=== PATIENT | female | born 1960 | race Caucasian/White ===

== ENCOUNTER 2023-08-22 02:51 | Emergency (ER) | payer OTHER ==
[~2023-08-22] VITALS: Ht 154.9 cm; Wt 89.3 kg
[2023-08-22 03:01] VITALS: BP 198/104; PULSE 91; O2SAT 99
[2023-08-22] MEDS: acetaminophen 325mg tablet PO ONE (04:42)
[2023-08-22] MEDS: ibuprofen tablet 400 MG TABLET PO ONE (04:43)
[2023-08-22] MEDS: TETanus/Pertussis (Acell)/Diphther VAC/PF (Tdap-Adult) 0.5ml syringe IMVAC ONE (04:44)
[2023-08-22 04:50] VITALS: RESP 14
[2023-08-22 05:55] VITALS: TEMP 98.3
== END 2023-08-22 05:59 | disposition home or self-care (01) ==
LOC: ER 02:53
DX: S50.311A Abrasion of right elbow, initial encounter (principal); E11.9 Type 2 diabetes mellitus without complications; M25.551 Pain in right hip; M25.521 Pain in right elbow; Z88.2 Allergy status to sulfonamides; W01.0XXA Fall on same level from slipping, tripping and stumbling without subsequent striking against object, initial encounter; Y93.89 Activity, other specified; Y92.89 Other specified places as the place of occurrence of the external cause; Y99.8 Other external cause status
CPT/HCPCS: 73080; 73502; 90471; 90715; 99284

== ENCOUNTER 2024-04-13 05:26 | Inpatient (IN) | payer OTHER ==
[2024-04-03 15:18] LABS: BASOPHILS % (AUTO) 0.7 % (0-1); BILIRUBIN,URINE NEGATIVE (Neg); CLARITY,URINE CLEAR (Clear); COLOR,URINE YELLOW (Yellow); EOSINOPHILS # (AUTO) 0.2 X10'3 (0-0.9); EOSINOPHILS % (AUTO) 3.6 % (0-6); GLUCOSE, URINE 500 mg/dl (Neg); KETONES,URINE NEGATIVE (Neg); LEUKOCYTE ESTERASE ,URINE NEGATIVE (Neg); LYMPHOCYTES # (AUTO) 2.4 X10'3 (1.1-4.8); LYMPHOCYTES % (AUTO) 40.9 % (21-51); MEAN CORPUSCULAR HEMOGLOBIN 31.9 PG (27.0-31.0); MEAN CORPUSCULAR HGB CONC 35.2 g/dL (33.0-36.5); MEAN CORPUSCULAR VOLUME 90.8 FL (78-98); MEAN PLATELET VOLUME 7.4 FL (7.4-10.4); MONOCYTES # (AUTO) 0.4 X10'3 (0-0.9); MONOCYTES % (AUTO) 6.4 % (2-12); NEUTROPHILS # (AUTO) 2.9 X10'3 (1.8-7.7); NEUTROPHILS % (AUTO) 48.4 % (42-75); NITRITES, URINE NEGATIVE (Neg); OCCULT BLOOD,URINE TRACE-INTACT (Neg); PRE OP HEMATOCRIT 42.3 % (35.0-45.0); PRE OP HEMOGLOBIN 14.9 g/dL (12.0-16.0); PRE OP PLATELET COUNT 231 X10'3 (140-440); PRE OP WHITE BLOOD COUNT 5.9 10'3 (4.8-10.8); PROTEIN,URINE NEGATIVE (Neg); RED BLOOD COUNT 4.66 X10'6 (4.20-5.60); RED CELL DISTRIBUTION WIDTH 12.6 % (11.5-14.5); UROBILINOGEN,URINE 0.2 E.U/dL (0.2-1.0)
[2024-04-03 15:25] LABS: UA COLLECTION TYPE CLN CATCH MIDSTREAM
[2024-04-03 15:26] LABS: SQUAMOUS EPITHELIAL CELL,UR MODERATE /LPF (FEW)
[2024-04-03 15:27] LABS: BACTERIA,URINE 1+ /HPF (Neg); RBC,URINE 0-2 /HPF (0-2); WBC,URINE 0-4 /HPF (0-4)
[2024-04-03 16:09] LABS: ALBUMIN 3.7 G/DL (3.4-5.0); ALBUMIN/GLOBULIN RATIO 1.1 (1.1-1.5); ALKALINE PHOSPHATASE 93 IU/L (46-116); BLOOD UREA NITROGEN 16 MG/DL (7-18); BUN/CREATININE RATIO 17.8 (10.0-20.0); CALCIUM 9.4 MG/DL (8.5-10.1); CHLORIDE 102 MMOL/L (99-107); PRE OP ALT 57 U/L (30-65); PRE OP ANION GAP 11 (8-16); PRE OP AST 36 U/L (10-37); PRE OP BILIRUB, TOTAL 0.5 MG/DL (0.0-1.0); PRE OP SODIUM 140 MMOL/L (135-145); TOTAL CARBON DIOXIDE 27.1 MMOL/L (24-32); TOTAL PROTEIN 7.2 G/DL (6.4-8.2); eGFR 63 ML/MIN
[2024-04-03 16:19] LABS: PRE OP GLUCOSE 300 MG/DL (70-104); PRE OP POTASSIUM 3.8 MMOL/L (3.4-5.1)
[2024-04-04 13:47] LABS: HEMOGLOBIN A1C 8.1 % (4.5-6.2)
[~2024-04-13] VITALS: Ht 154.9 cm; Wt 81.7 kg
[2024-04-13] VITALS (39 sets, daily range): BP systolic 93–130; BP diastolic 46–75; PULSE 66–91; RESP 10–20; TEMP 97.2–98.2; O2SAT 86–99
[2024-04-13] MEDS: loratadine 10mg tablet PO SCH (02:30)
[~2024-04-13 05:26] MED LIST: ASPI-611 PO; METF-900 PO; SITA25TA3 PO
[2024-04-13] MEDS ORDERED: VANCOMYCIN 1,500MG inj. 1,500 MG in normal saline 500ml IV soln 300 ML IV ONE (05:30)
[2024-04-13] MEDS: ceFAZolin 2gm in dextrose, iso 50 ML IV ONE (05:38)
[2024-04-13] MEDS: ringers solution, lacted 1,000 ML IV SCH ×3 (05:54→13:32)
[2024-04-13] MEDS: famotidine 20mg tablet PO ONE (05:54)
[2024-04-13] MEDS ORDERED: NPH, human insulin isophane inj. SQ STA (06:26)
[2024-04-13] MEDS ORDERED: BUPIVAcaine 2.5mg/ml inj 50ml vial (contains preservative) ONE (06:36)
[2024-04-13] MEDS ORDERED: bacitracin 15gm ointment TP ONE (06:36)
[2024-04-13] MEDS: insulin regular, human 10 units/0.1 ml syringe IV ONE (06:47)
[2024-04-13] MEDS ORDERED: BUPIVACAINE liposomal/PF 13.3 MG/ML 10mL vial IM ONE (07:11)
[2024-04-13] MEDS ORDERED: BUPIVAcaine/PF 2.5mg/ml (0.25%) 10ml vial ONE (07:11)
[2024-04-13] MEDS ORDERED: BUPIVAcaine 0.5% inj/PF 30 ML ONE (07:11)
[2024-04-13] MEDS ORDERED: sevoflurane 250ml liquid IH ONE (07:15)
[2024-04-13] MEDS ORDERED: midazolam 1 mg/ML 2ml injection ONE (07:16)
[2024-04-13] MEDS ORDERED: fentaNYL/PF 50MCG/1 ML 2ML syringe ONE (07:16)
[2024-04-13] MEDS ORDERED: succinylcholine 20mg/ml inj IV ONE (07:18)
[2024-04-13] MEDS ORDERED: LIDOcaine 2% (20mg/ml) 5ml vial ONE (07:19)
[2024-04-13] MEDS ORDERED: propofol inj 20 ML IV ONE (07:19)
[2024-04-13] MEDS ORDERED: ondansetron/PF 4mg/2ml inj ONE (07:46)
[2024-04-13] MEDS ORDERED: labetalol 20mg/4ml (5mg/ml) syringe IV PRN (08:15)
[2024-04-13] MEDS ORDERED: hydrALAZINE 20mg/ml inj. IV PRN (08:15)
[2024-04-13] MEDS ORDERED: morphine 2 MG/ML inj. syringe IV PRN (08:15)
[2024-04-13] MEDS ORDERED: fentaNYL/PF 50MCG/1 ML 2ML syringe IV PRN ×2 (08:15)
[2024-04-13] MEDS: bacitracin 15gm ointment TP ONE (08:30)
[2024-04-13] MEDS: morphine 4 MG/ML inj SYRINge IV PRN (09:53)
[2024-04-13] MEDS: HYDROcodone/acetaminophen 5mg/325mg tablet PO ONE (10:49)
[2024-04-13] MEDS: ondansetron/PF 4mg/2ml inj IV PRN (11:55)
[2024-04-13] MEDS ORDERED: HYDROmorphone inj. 0.5 MG/0.5 ML DISP.SYRIN IV PRN (12:10)
[2024-04-13] MEDS ORDERED: ondansetron/PF 4mg/2ml inj IV PRN (12:10)
[2024-04-13] MEDS ORDERED: diphenhydrAMINE 25mg capsule PO PRN ×2 (12:10)
[2024-04-13] MEDS ORDERED: metoclopramide 5 mg/ml inj IV PRN (12:10)
[2024-04-13] MEDS ORDERED: acetaminophen 325mg tablet PO PRN ×2 (12:10)
[2024-04-13] MEDS ORDERED: bisacodyl 10mg suppository rectal RC PRN (12:10)
[2024-04-13] MEDS: proCHLORperazine 10 MG/2 ml inj IV ONE (12:21)
[2024-04-13] MEDS ORDERED: HYDROcodone/acetaminophen 5mg/325mg tablet PO ONE (13:15)
[2024-04-13] MEDS: gabapentin 300mg capsule PO SCH (13:33)
[2024-04-13] MEDS ORDERED: glucagon, human recombinant 1mg kit SUBCUT PRN (15:05)
[2024-04-13] MEDS ORDERED: dextrose 50%-water 50ml dispensing syringe IV PRN ×2 (15:05)
[2024-04-13] MEDS ORDERED: DEXTROSE 15 GM of carb/4 tabs (each vial/BOTTLE has 4 tablets) PO PRN ×2 (15:05)
[2024-04-13] MEDS: ketorolac trometh 15mg/ml vial 15 MG/ML ML IV SCH (15:35)
[2024-04-13] MEDS: INSULIN LISPRO 100 UNIT/ML INSULN.PEN MULTI-DOSE SQ SCH (18:19)
[2024-04-13] MEDS: oxyCODONE IR 5mg (immed. release) tablet PO PRN (18:26)
[2024-04-13] MEDS: sennosides 8.6mg tablet PO SCH (21:44)
[2024-04-14] MEDS: HYDROcodone/acetaminophen 10/325mg tab PO PRN (03:58)
[2024-04-14 05:14] LABS: BASOPHILS % (AUTO) 0.2 % (0-1); EOSINOPHILS # (AUTO) 0.9 X10'3 (0-0.9); EOSINOPHILS % (AUTO) 8.1 % (0-6); HEMATOCRIT 36.2 % (35.0-45.0); HEMOGLOBIN 12.7 g/dl (12.0-16.0); LYMPHOCYTES # (AUTO) 2.8 X10'3 (1.1-4.8); LYMPHOCYTES % (AUTO) 24.6 % (21-51); MEAN CORPUSCULAR HEMOGLOBIN 31.6 PG (27.0-31.0); MEAN CORPUSCULAR HGB CONC 35.1 g/dL (33.0-36.5); MEAN CORPUSCULAR VOLUME 90.1 FL (78-98); MEAN PLATELET VOLUME 7.6 FL (7.4-10.4); MONOCYTES # (AUTO) 0.9 X10'3 (0-0.9); MONOCYTES % (AUTO) 7.5 % (2-12); NEUTROPHILS # (AUTO) 6.8 X10'3 (1.8-7.7); NEUTROPHILS % (AUTO) 59.6 % (42-75); PLATELET COUNT 231 X10'3 (140-440); RED BLOOD COUNT 4.02 X10'6 (4.20-5.60); RED CELL DISTRIBUTION WIDTH 12.7 % (11.5-14.5); WHITE BLOOD COUNT 11.4 X10'3 (4.5-11.0)
[2024-04-14 05:29] LABS: ANION GAP 3 (8-16); CHLORIDE 101 MMOL/L (99-107); POTASSIUM 3.9 MMOL/L (3.5-5.1); SODIUM 137 MMOL/L (135-145); TOTAL CARBON DIOXIDE 32.6 MMOL/L (24-32)
[2024-04-14 07:34] VITALS: BP 101/46; PULSE 77; RESP 14; TEMP 97.9; O2SAT 96
[2024-04-14] MEDS ORDERED: labetalol 20mg/4ml (5mg/ml) syringe IV PRN (07:40)
[2024-04-14] MEDS: cloNIDine 0.1 mg tablet PO SCH (08:00)
[2024-04-14] MEDS: aspirin 325mg tablet PO SCH (08:28)
[2024-04-14 11:46] VITALS: BP 114/44; PULSE 72; RESP 14; TEMP 98.6; O2SAT 94
[2024-04-14 18:00] VITALS: BP 130/64; PULSE 82; RESP 14; O2SAT 95
[2024-04-14 22:00] VITALS: BP 117/55; PULSE 87; RESP 16; TEMP 99.1; O2SAT 92
[2024-04-15] VITALS (8 sets, daily range): BP systolic 118–147; BP diastolic 58–64; PULSE 81–99; RESP 12–18; TEMP 98.2–100; O2SAT 94–95
[2024-04-15 06:18] LABS: BASOPHILS % (AUTO) 0.4 % (0-1); EOSINOPHILS # (AUTO) 1.3 X10'3 (0-0.9); EOSINOPHILS % (AUTO) 11.1 % (0-6); HEMATOCRIT 35.6 % (35.0-45.0); HEMOGLOBIN 12.3 g/dl (12.0-16.0); LYMPHOCYTES # (AUTO) 2.2 X10'3 (1.1-4.8); LYMPHOCYTES % (AUTO) 19.7 % (21-51); MEAN CORPUSCULAR HEMOGLOBIN 31.1 PG (27.0-31.0); MEAN CORPUSCULAR HGB CONC 34.6 g/dL (33.0-36.5); MEAN CORPUSCULAR VOLUME 89.9 FL (78-98); MEAN PLATELET VOLUME 7.7 FL (7.4-10.4); MONOCYTES # (AUTO) 0.8 X10'3 (0-0.9); MONOCYTES % (AUTO) 7.3 % (2-12); NEUTROPHILS % (AUTO) 61.5 % (42-75); PLATELET COUNT 207 X10'3 (140-440); RED BLOOD COUNT 3.96 X10'6 (4.20-5.60); RED CELL DISTRIBUTION WIDTH 12.9 % (11.5-14.5); WHITE BLOOD COUNT 11.4 X10'3 (4.5-11.0)
[2024-04-15] MEDS: HYDROcodone/acetaminophen 10/325mg tab PO PRN (06:27)
[2024-04-15] MEDS: magnesium hydroxide 30ml (MOM) UD suspension PO PRN (20:52)
[2024-04-16 06:06] LABS: BASOPHILS # (AUTO) 0.1 X10'3 (0-0.2); BASOPHILS % (AUTO) 0.6 % (0-1); EOSINOPHILS # (AUTO) 1.1 X10'3 (0-0.9); EOSINOPHILS % (AUTO) 11.4 % (0-6); HEMOGLOBIN 12.5 g/dl (12.0-16.0); LYMPHOCYTES # (AUTO) 2.9 X10'3 (1.1-4.8); MEAN CORPUSCULAR HEMOGLOBIN 32.1 PG (27.0-31.0); MEAN CORPUSCULAR HGB CONC 35.8 g/dL (33.0-36.5); MEAN CORPUSCULAR VOLUME 89.7 FL (78-98); MEAN PLATELET VOLUME 7.7 FL (7.4-10.4); MONOCYTES # (AUTO) 0.8 X10'3 (0-0.9); MONOCYTES % (AUTO) 8.6 % (2-12); NEUTROPHILS # (AUTO) 4.6 X10'3 (1.8-7.7); NEUTROPHILS % (AUTO) 48.4 % (42-75); PLATELET COUNT 208 X10'3 (140-440); RED CELL DISTRIBUTION WIDTH 12.7 % (11.5-14.5); WHITE BLOOD COUNT 9.4 X10'3 (4.5-11.0)
[2024-04-16 07:09] VITALS: BP 125/49; PULSE 86; RESP 14; TEMP 98.6; O2SAT 90; O2SAT 96
[2024-04-16 07:15] VITALS: RESP 14; O2SAT 91; O2SAT 92
[2024-04-16 10:48] VITALS: BP 114/54; PULSE 78; RESP 16; TEMP 98.4; O2SAT 94
[2024-04-16 18:00] VITALS: BP 157/68; PULSE 96; RESP 20; TEMP 97.7; O2SAT 94
[2024-04-16 22:00] VITALS: BP 117/56; PULSE 91; RESP 16; TEMP 98.1; O2SAT 94
[2024-04-17] VITALS (7 sets, daily range): BP systolic 107–151; BP diastolic 54–71; PULSE 62–101; RESP 14–20; TEMP 97.4–98.2; O2SAT 93–95
[2024-04-17] MEDS: docusate sodium 100mg/10ml UD cup PO SCH (22:06)
[2024-04-18 06:00] VITALS: BP 145/72; PULSE 82; RESP 14; TEMP 97.3; O2SAT 98
[2024-04-18 08:00] VITALS: RESP 14; O2SAT 98
[2024-04-18 10:00] VITALS: BP 131/54; PULSE 92; RESP 18; TEMP 98; O2SAT 95
[2024-04-18 18:00] VITALS: BP 141/57; PULSE 86; RESP 14; TEMP 97.6; O2SAT 100
[2024-04-18 20:00] VITALS: RESP 16
[2024-04-18 22:00] VITALS: BP 132/55; PULSE 86; RESP 18; TEMP 98.4; O2SAT 93
[2024-04-19 06:00] VITALS: BP 103/55; PULSE 76; RESP 76; TEMP 97.4; O2SAT 96
[2024-04-19 10:00] VITALS: BP 120/54; PULSE 63; RESP 18; TEMP 97.9; O2SAT 96
[2024-04-19 18:00] VITALS: BP 129/69; PULSE 80; RESP 16; TEMP 97.9; O2SAT 95
[2024-04-19] MEDS: docusate sod 100mg capsule PO SCH (19:57)
[2024-04-19 20:00] VITALS: RESP 16
[2024-04-19 22:00] VITALS: BP 115/44; PULSE 80; RESP 17; TEMP 98.3; O2SAT 95
[2024-04-20 06:00] VITALS: BP 117/64; PULSE 71; RESP 18; TEMP 97.7; O2SAT 96
[2024-04-20] MEDS: oxyCODONE IR 5mg (immed. release) tablet PO PRN (07:54)
[2024-04-20 09:13] VITALS: RESP 16; O2SAT 96
[2024-04-20 10:00] VITALS: BP 111/41; PULSE 77; RESP 16; TEMP 97.6; O2SAT 95
[2024-04-20 18:00] VITALS: BP 115/64; PULSE 77; RESP 14; TEMP 98.2; O2SAT 97
[2024-04-20 20:00] VITALS: RESP 14; O2SAT 97
[2024-04-20 22:00] VITALS: BP 123/58; PULSE 76; RESP 16; TEMP 98.8; O2SAT 97
[2024-04-21 04:20] VITALS: BP 146/99; PULSE 86; RESP 16; TEMP 97.5; O2SAT 96
[2024-04-21 04:47] VITALS: RESP 16; O2SAT 96
[2024-04-21] MEDS: aspirin 81mg, enteric-coated 1 TAB TABLET.DR PO SCH (08:00)
[2024-04-21] MEDS: metFORMIN 500mg tablet PO SCH (09:42)
[2024-04-21] MEDS: linagliptin 5mg tablet PO SCH (09:42)
[2024-04-21 09:44] VITALS: RESP 16
== END 2024-04-21 10:50 | disposition home or self-care (01) | DRG 502 ==
LOC: PAS 05:26 → SUR 3N 17:04 → OBSVTOIN 04-15 15:53 → SUR 3N 04-20 11:45 → ORTHO 4S 04-21 04:00
PROVIDERS: ADMIT Podiatrist Foot & Ankle Surgery; ATTEND Podiatrist Foot & Ankle Surgery
PROC: 0J8Q0ZZ Division of Right Foot Subcutaneous Tissue and Fascia, Open Approach (ICD-10-PCS; 2024-04-13)
PROC: 3E0T3BZ Introduction of Anesthetic Agent into Peripheral Nerves and Plexi, Percutaneous Approach (ICD-10-PCS; 2024-04-13)
PROC: 0LQN0ZZ Repair Right Lower Leg Tendon, Open Approach (ICD-10-PCS; 2024-04-13)
PROC: 0QBL0ZZ Excision of Right Tarsal, Open Approach (ICD-10-PCS; principal; 2024-04-13 07:15)
DX: M77.31 Calcaneal spur, right foot (principal); M92.61 Juvenile osteochondrosis of tarsus, right ankle; M76.61 Achilles tendinitis, right leg; M25.471 Effusion, right ankle; M67.873 Other specified disorders of tendon, right ankle and foot; M72.2 Plantar fascial fibromatosis; Z88.2 Allergy status to sulfonamides; Z88.1 Allergy status to other antibiotic agents
CPT/HCPCS: Z7506; Z7508; 36415; 73600; 76000; 80051; 80053; 81001; 82948; 83036; 85025; 87081; 97110; 97116; 97161; 97530; A4618; A6213; A6222; A6253; A6258; A6449; A7000; C1713; G0378; J0131; J0330; J0666; J0690; J0780; J1100; J1815; J1885; J2003; J2250; J2270; J2371; J2405; J2704; J3010; J3370; J3490; J7040; J7120